=== PATIENT | female | born 1990 | race Caucasian/White ===

== ENCOUNTER 2017-01-12 19:23 | Inpatient (IN) ==
[2017-01-12 19:52] LABS: URINE SOURCE VOIDED
[2017-01-12 20:04] LABS: BILIRUBIN URINE NEGATIVE (NEGATIVE); BLOOD URINE 1+ (NEGATIVE); CLARITY SL. CLOUDY (CLEAR); COLOR YELLOW; LEUKOCYTES URINE TRACE (NEGATIVE); NITRITE URINE NEGATIVE (NEGATIVE); PROTEIN URINE NEGATIVE (NEGATIVE); SP GRAVITY URINE 1.025; UROBILINOGEN URINE NORMAL
[2017-01-12 20:14] VITALS: BP 126/72
== END 2017-01-13 10:05 | disposition other institution (70) ==
LOC: P.OPLD 19:23 → P.LD 19:27 → P.OPLD 01-13 01:00 → P.LD 01-13 10:01
PROVIDERS: ADMIT Obstetrics & Gynecology; ATTEND Obstetrics & Gynecology

== ENCOUNTER 2017-01-13 09:24 | Inpatient (IN) ==
[2017-01-13] MEDS ORDERED: PITOCIN ONE (09:48)
[2017-01-13] MEDS ORDERED: LR 1,000 ML ONE (09:49)
[2017-01-13] MEDS ORDERED: LR 2,000 ML ONE (09:57)
[2017-01-13] MEDS ORDERED: MINERAL OIL ONE (10:12)
[2017-01-13] MEDS ORDERED: XYLOCAINE-MPF 1% INJ ONE (10:12)
[2017-01-13] MEDS ORDERED: AMPICILLIN 2 GM/NS 2 GM/100 ML IVPB ONE (10:20)
[2017-01-13] MEDS ORDERED: STADOL IV PRN (11:41)
[2017-01-13] MEDS ORDERED: LR 500 ML IV ONE (11:41)
[2017-01-13] MEDS ORDERED: LR 1,000 ML IV SCH (11:41)
[2017-01-13] MEDS ORDERED: PEPCID PO PRN (11:41)
[2017-01-13] MEDS ORDERED: ZOFRAN IV PRN (11:41)
[2017-01-13] MEDS ORDERED: PEPCID PO ONE (11:41)
[2017-01-13] MEDS ORDERED: PITOCIN 30 UNITS/LR 30 UNITS/500 ML IV.SOLN IV SCH (11:41)
[2017-01-13] MEDS ORDERED: TYLENOL PO PRN (11:41)
[2017-01-13] MEDS ORDERED: PEPCID IV PRN (11:41)
[2017-01-13] MEDS ORDERED: REGLAN PO ONE (11:41)
[2017-01-13] MEDS ORDERED: BENADRYL PO PRN (11:44)
[2017-01-13] MEDS ORDERED: CYTOTEC PO PRN (11:44)
[2017-01-13] MEDS ORDERED: PITOCIN IM PRN (11:44)
[2017-01-13] MEDS ORDERED: PERI MEDS (DERMOPLAST/NUPERCAINAL/TUCKS) MISC PRN (11:44)
[2017-01-13] MEDS ORDERED: PITOCIN 30 UNITS/LR 30 UNITS/500 ML IV.SOLN IV ONE (11:44)
[2017-01-13] MEDS ORDERED: HYDROXYZINE IM PRN (11:44)
[2017-01-13] MEDS ORDERED: HYDROXYZINE PO PRN (11:44)
[2017-01-13] MEDS ORDERED: MINERAL OIL PO PRN (11:44)
[2017-01-13] MEDS ORDERED: AMBIEN PO PRN (11:44)
[2017-01-13] MEDS ORDERED: M-M-R II VACCINE SUBQ ONE (11:44)
[2017-01-13] MEDS ORDERED: BENADRYL IV PRN (11:44)
[2017-01-13] MEDS ORDERED: BOOSTRIX VACCINE IM ONE (11:44)
[2017-01-13] MEDS ORDERED: PITOCIN 20 UNITS/LR 20 UNITS/1,000 ML IV.SOLN IV SCH (11:44)
[2017-01-13] MEDS ORDERED: XYLOCAINE-MPF 1% INJ PRN (11:44)
[2017-01-13 11:45] LABS: URINE SOURCE VOIDED
[2017-01-13] MEDS ORDERED: SODIUM CHLORIDE 0.9% INJ SCH (11:45)
[2017-01-13 11:48] LABS: BILIRUBIN URINE NEGATIVE (NEGATIVE); BLOOD URINE 4+ (NEGATIVE); CLARITY CLEAR (CLEAR); COLOR YELLOW; GLUCOSE URINE NEGATIVE (NEGATIVE); LEUKOCYTES URINE 2+ (NEGATIVE); NITRITE URINE NEGATIVE (NEGATIVE); PH URINE 6.5; PROTEIN URINE TRACE mg/dL (NEGATIVE); UROBILINOGEN URINE NORMAL
[2017-01-13 11:54] LABS: BASO% 0.1 % (0.0-0.8); EOS# 0.01 X1000 (0.0-0.7); EOS% 0.1 % (0.0-10.0); HEMATOCRIT 35.8 % (37.0-47.0); HEMOGLOBIN 11.6 g/dL (12.0-16.0); IMM GRAN# 0.05 X1000 (0.0-0.04); IMM GRAN% 0.3 % (0.0-0.5); LYMPH# 1.15 X1000 (1.2-3.4); LYMPH% 7.5 % (20.5-51.1); MANUAL DIFF NEEDED? YES; MCH 26.4 PG (27-31); MCHC 32.4 g/dL (33-37); MCV 81.5 FL (81-99); MONO# 0.79 X1000 (0.11-0.59); MONO% 5.1 % (1.7-9.3); MPV 10.6 FL (7.4-10.4); NEUT% 86.9 % (42.2-75.2); PLT 202 X1000 (130-400); RBC 4.39 XMIL (4.2-5.4)
[2017-01-13] MEDS: NORCO-10 PO PRN ×3 (12:09→20:57)
[2017-01-13] MEDS: MOTRIN PO PRN ×2 (12:09→20:57)
[2017-01-13 12:37] LABS: EOS 2 % (1-10); LYMPHS 5 % (21-51); MONO 3 % (1-9)
--- NOTE | 2017-01-13 18:04 | OPERATIVE NOTE ---
PROCEDURE DATE: 01/13/2017 DELIVERY PHYSICIAN: Payton. TYPE OF DELIVERY: Spontaneous controlled vaginal delivery. ANESTHESIA: None. FINDINGS: At 10:23 an 8 pound 1 ounce male was delivered in occiput anterior presentation. Apgars were 10 at 1 minute and 10 at 5 minutes. SUMMARY: Zeinab Randall is a 26-year-old 3, para 1-0-1-1 at term gestation. Her blood type is A negative. Group B strep is positive. She presented to labor and delivery this morning completely dilated and shortly after began pushing. She was placed in dorsal lithotomy position. The perineum was prepped and draped in usual fashion. Spontaneous controlled vaginal delivery occurred. Shoulders delivered without difficulty. The oropharynx was bulb suctioned. Cord clamped, cut, the infant was handed to the nurses further care and evaluation. We attempted to give group B strep prophylaxis antibiotics but she had delivery prior to infusion 1st dose. Cord blood was obtained. Placenta was spontaneously delivered and was intact. There were no cervical or vaginal lacerations. Blood loss estimated 200 mL. Patient remained in the LDR recovering without difficulty. cc: Shane Cain MD [facility]
[2017-01-13] MEDS: PERICOLACE PO SCH (20:57)
[2017-01-14] MEDS: NORCO-10 PO PRN ×4 (05:04→19:16)
[2017-01-14] MEDS: MOTRIN PO PRN ×2 (05:04→19:15)
[2017-01-14 05:42] LABS: HEMATOCRIT 29.5 % (37.0-47.0); HEMOGLOBIN 9.4 g/dL (12.0-16.0); MCH 26.6 PG (27-31); MCHC 31.9 g/dL (33-37); MCV 83.6 FL (81-99); RBC 3.53 XMIL (4.2-5.4)
[2017-01-14] MEDS: PRECARE PO SCH (08:08)
[2017-01-14] MEDS: NORCO-5 PO PRN ×2 (11:11→22:15)
[2017-01-14] MEDS: PERICOLACE PO SCH ×2 (19:16→20:21)
[2017-01-15] MEDS: MOTRIN PO PRN (07:40)
[2017-01-15] MEDS: NORCO-10 PO PRN ×2 (07:41→11:52)
[2017-01-15 08:15] VITALS: BP 116/69
[2017-01-15] MEDS: PRECARE PO SCH (09:37)
== END 2017-01-15 13:45 | disposition home or self-care (01) ==
LOC: P.LD → OBSVTOIN 09:24 → P.LD 10:06 → P.WC 01-14 09:50
PROVIDERS: ADMIT Obstetrics & Gynecology; ATTEND Obstetrics & Gynecology